=== PATIENT | female | born 1985 | race Caucasian/White ===

== ENCOUNTER 2018-12-12 16:11 | Emergency (ER) | payer MEDICAID ==
[~2018-12-12] VITALS: Ht 152.4 cm; Wt 68.0 kg
[2018-12-12 16:35] VITALS: BP 106/64
[2018-12-12] MEDS ORDERED: NEXPLANON IMPLANT (16:45)
--- NOTE | 2018-12-12 16:46 | NUR ---
leaking clear, watery vaginal fluid started 4 days ago, pain with sex that started 4 days ago also. no significant past medical history.
[2018-12-12 17:46] LABS: CLUE CELLS PRESENT (NONE SEEN); WET PREP WBCS FEW (FEW)
[2018-12-12] MEDS ORDERED: metroNIDAZOLE 500 MG TABLET PO ONE (18:00)
[2018-12-12] MEDS ORDERED: metroNIDAZOLE 500 MG TABLET ONE (18:04)
--- NOTE | 2018-12-12 18:07 | NUR ---
pt medicated per emar. pt ambulatory to bathroom to provide urine sample.
[2018-12-12 18:28] LABS: CULTURE INDICATED? YES; MICROSCOPIC INDICATED
== END 2018-12-12 19:09 | disposition home or self-care (01) ==
LOC: ED 18:45
DX: N89.8 Other specified noninflammatory disorders of vagina (principal); R10.2 Pelvic and perineal pain
CPT/HCPCS: 81001; 87086; 87147; 87210; 87491; 87591; 87808; 99283

== ENCOUNTER 2019-01-17 01:10 | Emergency (ER) | payer MEDICAID ==
[~2019-01-17] VITALS: Ht 157.5 cm; Wt 65.0 kg
[~2019-01-17 01:10] MED LIST: NEXPLANON IMPLANT
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
--- NOTE | 2019-01-17 01:53 | NUR ---
PT TO CT
--- NOTE | 2019-01-17 02:20 | NUR ---
PT BACK FROM CT. PT SLEEPING. CALL LIGHT IN REACH
--- NOTE | 2019-01-17 03:00 | NUR ---
PT GOT OUT OF GURNEY AND URINATED ON FLOOR. PT PLACED BACK IN GURNEY. FLOOR CLEANED.
--- NOTE | 2019-01-17 03:41 | NUR ---
REPORT TO TIA PAYTON
--- NOTE | 2019-01-17 04:52 | NUR ---
PT RESTING IN BED A SLEEP. PT WAS PROVIDED A BLANKET.
[2019-01-17 05:15] VITALS: BP 116/70
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
== END 2019-01-17 05:17 | disposition home or self-care (01) ==
LOC: ED 01:43
DX: S00.511A Abrasion of lip, initial encounter (principal); S09.90XA Unspecified injury of head, initial encounter; F10.121 Alcohol abuse with intoxication delirium; G92 Toxic encephalopathy; R41.0 Disorientation, unspecified; Y04.0XXA Assault by unarmed brawl or fight, initial encounter; Y93.89 Activity, other specified; Y92.89 Other specified places as the place of occurrence of the external cause; Y99.8 Other external cause status
CPT/HCPCS: 70450; 70486; 99284

== ENCOUNTER 2020-01-04 17:02 | Emergency (ER) | payer MEDICAID ==
[~2020-01-04] VITALS: Ht 152.4 cm; Wt 72.9 kg
[2020-01-04 17:11] VITALS: BP 122/85
--- NOTE | 2020-01-04 17:46 | NUR ---
EDITOR: PT TO ROOM FROM [facility]
[2020-01-04 18:11] LABS: HCG UR SG 1.023 (1.003-1.030)
[2020-01-04 18:13] LABS: BASOPHILS # (AUTO) 0.09 x10^3/uL (0-0.1); BASOPHILS % (AUTO) 1 % (0-1); EOSINOPHILS # (AUTO) 0.22 x10^3/uL (0-0.4); EOSINOPHILS % (AUTO) 3 % (1-7); LYMPHOCYTES # (AUTO) 1.98 x10^3/uL (1-3.4); LYMPHOCYTES % (AUTO) 27 % (22-44); MD NO; MEAN CORPUSCULAR HEMOGLOBIN 30.6 pg (27.0-34.8); MEAN CORPUSCULAR HGB CONC 34.2 g/dL (32.4-35.8); MEAN CORPUSCULAR VOLUME 89.5 fL (80-100); MEAN PLATELET VOLUME 7.8 fL (7.4-10.4); MONOCYTES # (AUTO) 0.52 x10^3/uL (0.2-0.8); MONOCYTES % (AUTO) 7 % (2-9); NEUTROPHILS # (AUTO) 4.46 x10^3/uL (1.8-6.8); NEUTROPHILS % (AUTO) 61 % (42-75); PLATELET COUNT 163 x10^3/uL (130-400); RED CELL DISTRIBUTION WIDTH 12.8 % (9.6-15.2)
[2020-01-04 18:22] LABS: ANION GAP 10 mmol/L (5-15); CALCIUM 8.9 mg/dL (8.5-10.1); CHLORIDE 105 mmol/L (98-107); CREATININE 0.89 mg/dL (0.55-1.02)
== END 2020-01-04 19:32 ==
LOC: ED 19:00
DX: N93.8 Other specified abnormal uterine and vaginal bleeding (principal)
CPT/HCPCS: 36415; 76830; 80048; 81025; 85025; 99284

== ENCOUNTER 2020-02-14 23:48 | Emergency (ER) | payer MEDICAID ==
[~2020-02-14] VITALS: Ht 160 cm; Wt 72.3 kg
[2020-02-14 23:53] VITALS: BP 107/82
== END 2020-02-15 00:56 ==
LOC: ED 02-15 00:50
DX: H92.01 Otalgia, right ear (principal); Z53.21 Procedure and treatment not carried out due to patient leaving prior to being seen by health care provider

== ENCOUNTER 2020-02-17 22:55 | Emergency (ER) | payer MEDICAID ==
[~2020-02-17] VITALS: Ht 154.9 cm; Wt 73.5 kg
--- NOTE | 2020-02-17 23:16 | NUR ---
PT REPORTS RIGHT EAR PAIN X3 WEEKS WITH OCCASIONAL LORENZO, TOOK ADVIL TONIGHT WITHOUT PAIN RELIEF. PT DENIES ANY OTHER C/O AT THIS TIME, DENIES DRAINAGE FROM EAR. PT PLACED ON MONITORING, CALL LIGHT WITHIN REACH, ALL SAFETY MEASURES IN PLACE.
[2020-02-17 23:17] VITALS: BP 102/67
[2020-02-17] MEDS ORDERED: CARBAMIDE PEROXIDE EAR DROPS 6.5%, 15ML EACH EAR ONE (23:30)
[2020-02-17] MEDS ORDERED: CARBAMIDE PEROXIDE EAR DROPS 6.5%, 15ML ONE (23:34)
--- NOTE | 2020-02-18 00:36 | NUR ---
PT BILATERAL EARS IRRIGATED. PT TOLERATED WELL, SMALL AMOUNT OF EARWAX OUT FROM EACH YEAR.
== END 2020-02-18 00:55 | disposition home or self-care (01) ==
LOC: ED 02-18 00:34
DX: H61.23 Impacted cerumen, bilateral (principal); H92.03 Otalgia, bilateral
CPT/HCPCS: 69209; 99282

== ENCOUNTER 2020-04-11 17:03 | Emergency (ER) | payer MEDICAID ==
[~2020-04-11] VITALS: Ht 160 cm; Wt 72.5 kg
--- NOTE | 2020-04-11 17:20 | NUR ---
PATIENT WALKED BACK FROM TRIAGE WITH CHIEF C/O LORENZO AND BILATERAL BLURRY VISION SINCE YESTERDAY. PATIENT DENIES N/V, ENDORSES SENSITIVITY TO LIGHT AND SOUND. NO SIGNS OF ACUTE DISTRESS, ATTACHED TO VITALS MACHINE, CALL LIGHT WITHIN REACH. ER PROVIDER AT BEDSIDE FOR EVALUATION.
[2020-04-11] MEDS ORDERED: KETOROLAC 30 MG/1 ML ONE (17:30)
[2020-04-11] MEDS ORDERED: SODIUM CHLORIDE FLUSH 10ML SYR IVF ONE (17:30)
[2020-04-11] MEDS ORDERED: KETOROLAC 30 MG/1 ML IVPush ONE (17:30)
[2020-04-11] MEDS ORDERED: METOCLOPRAMIDE 5 MG/ML, 2ML IVPush ONE (17:30)
[2020-04-11] MEDS ORDERED: DIPHENHYDRAMINE 50 MG/ML, 1ML ONE (17:30)
[2020-04-11] MEDS ORDERED: SODIUM CHLORIDE 0.9% 1,000ML IVBOLUS ONE (17:30)
[2020-04-11] MEDS ORDERED: DIPHENHYDRAMINE 50 MG/ML, 1ML IVPush ONE (17:30)
[2020-04-11] MEDS ORDERED: METOCLOPRAMIDE 5 MG/ML, 2ML ONE (17:30)
--- NOTE | 2020-04-11 18:00 | NUR ---
ENTERTAINMENT & MEDIA CORRESPONDENT DOING EYE EXAM.
--- NOTE | 2020-04-11 18:17 | NUR ---
PATIENT RESTING IN GURNEY WITH EYES CLOSED, RESP EVEN AND UNLABORED, CONNETED TO VITALS MACHINE, CALL LIGHT WITHIN REACH.
[2020-04-11 18:36] VITALS: BP 97/64
--- NOTE | 2020-04-11 19:11 | NUR ---
Patient given discharge instructions and they have confirmed that they understand the instructions, all questions answered. IV removed with tip intact. Patient ambulatory with steady gait to discharge desk.
== END 2020-04-11 19:12 | disposition home or self-care (01) ==
LOC: ED 17:42
DX: G43.C0 Periodic headache syndromes in child or adult, not intractable (principal)
CPT/HCPCS: 96361; 96374; 96375; 99284; J1200; J1885; J2765; J7030

== ENCOUNTER 2020-08-03 12:19 | Emergency (ER) | payer MEDICAID ==
[~2020-08-03] VITALS: Ht 152.4 cm; Wt 71.8 kg
--- NOTE | 2020-08-03 12:39 | NUR ---
PT CAME IN CO LLQ AND RLQ ABD PAIN THAT STARTED LAST NIGHT. PT SAID SHE HAS HAD 1 EPISODE OF VOMITTING AND NUMEROUS EPISODES OF DIARRHEA. PT DENIES RECENT ABX OR URINARY SYMPTOMS. PT RESTING IN [facility]. PROVIDED UA SAMPLE. CONNECTED TO MONITORING EQUIPMENT. BLANKET PROVIDED
--- NOTE | 2020-08-03 12:45 | NUR ---
assumed care of pt. report from Moshe PAYTON. pt here for diarrhea and abd pain. resting in position of comfort. awaiting MD to bedside
--- NOTE | 2020-08-03 12:59 | NUR ---
Sona BOLANOS at bedside for eval
[2020-08-03] MEDS ORDERED: MAALOX/HYOSCYAMINE/LIDOCAINE 45 ML BTL PO ONE (13:30)
[2020-08-03] MEDS ORDERED: ONDANSETRON 2MG/ML, 2ML IVPush ONE (13:30)
[2020-08-03] MEDS ORDERED: FAMOTIDINE 20 MG/2 ML IVPush ONE (13:30)
[2020-08-03 13:33] LABS: BASOPHILS % (AUTO) 1 % (0-1); EOSINOPHILS % (AUTO) 4 % (1-7); LYMPHOCYTES % (AUTO) 14 % (22-44); MD NO; MEAN CORPUSCULAR HGB CONC 33.8 g/dL (32.4-35.8); MONOCYTES % (AUTO) 4 % (2-9); NEUTROPHILS % (AUTO) 77 % (42-75); PLATELET COUNT 226 x10^3/uL (130-400); RED BLOOD COUNT 4.44 x10^6/uL (3.82-5.3)
[2020-08-03 13:39] LABS: ALANINE AMINOTRANSFERASE 105 U/L (12-78); ALBUMIN 3.6 g/dL (3.4-5.0); ANION GAP 10 mmol/L (5-15); CALCIUM 8.8 mg/dL (8.5-10.1); CHLORIDE 106 mmol/L (98-107); CREATININE 0.63 mg/dL (0.55-1.02)
[2020-08-03 13:41] LABS: ALKALINE PHOSPHATASE 62 U/L (45-117); BILIRUBIN,TOTAL 0.5 mg/dL (0.2-1.0); TOTAL PROTEIN 7.4 g/dL (6.4-8.2)
--- NOTE | 2020-08-03 14:00 | NUR ---
late note: this pt was D/C by another RN
[2020-08-03] MEDS ORDERED: FAMOTIDINE 20 MG/2 ML ONE (14:02)
[2020-08-03] MEDS ORDERED: ONDANSETRON 2MG/ML, 2ML ONE (14:02)
[2020-08-03] MEDS ORDERED: MAALOX/HYOSCYAMINE/LIDOCAINE 45 ML BTL ONE (14:02)
[2020-08-03 14:32] VITALS: BP 92/58
== END 2020-08-03 14:53 | disposition home or self-care (01) ==
LOC: ED 13:02
DX: R10.30 Lower abdominal pain, unspecified (principal); R11.2 Nausea with vomiting, unspecified; R19.7 Diarrhea, unspecified
CPT/HCPCS: 36415; 76700; 80053; 83690; 85025; 96374; 96375; 99284; J2405

== ENCOUNTER 2020-08-10 06:10 | Emergency (ER) | payer MEDICAID ==
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
[2020-08-10] MEDS ORDERED: CHLORDIAZEPOXIDE 25 MG CAPSULE ONE (07:30)
[2020-08-10] MEDS ORDERED: CHLORDIAZEPOXIDE 25 MG CAPSULE PO ONE (07:30)
[2020-08-10] MEDS ORDERED: ONDANSETRON 2MG/ML, 2ML ONE (07:30)
[2020-08-10] MEDS ORDERED: ONDANSETRON 2MG/ML, 2ML IVPush ONE (07:30)
[2020-08-10 07:51] LABS: BASOPHILS % (AUTO) 2 % (0-1); EOSINOPHILS % (AUTO) 2 % (1-7); LYMPHOCYTES % (AUTO) 42 % (22-44); MEAN CORPUSCULAR HEMOGLOBIN 30.1 pg (27.0-34.8); MEAN CORPUSCULAR HGB CONC 34.7 g/dL (32.4-35.8); MEAN PLATELET VOLUME 6.7 fL (7.4-10.4); MONOCYTES % (AUTO) 8 % (2-9); NEUTROPHILS % (AUTO) 47 % (42-75); PLATELET COUNT 294 x10^3/uL (130-400); RED BLOOD COUNT 4.26 x10^6/uL (3.82-5.3); RED CELL DISTRIBUTION WIDTH 14.4 % (9.6-15.2)
[2020-08-10 07:53] LABS: MD NO
[2020-08-10 07:58] LABS: ALBUMIN 3.2 g/dL (3.4-5.0); ANION GAP 10 mmol/L (5-15); CALCIUM 7.6 mg/dL (8.5-10.1); CHLORIDE 111 mmol/L (98-107); CREATININE 0.57 mg/dL (0.55-1.02)
[2020-08-10 08:06] LABS: ALANINE AMINOTRANSFERASE 65 U/L (12-78); ALKALINE PHOSPHATASE 58 U/L (45-117); BILIRUBIN,TOTAL 0.3 mg/dL (0.2-1.0); TOTAL PROTEIN 6.8 g/dL (6.4-8.2)
[2020-08-10 09:13] LABS: AMPHETAMINE SCREEN, URINE Negative (Negative); BARBITURATE SCREEN, URINE Negative (Negative); BENZODIAZEPINE SCREEN, URINE Negative (Negative); CANNABINOID SCREEN, URINE Negative (Negative); COCAINE SCREEN, URINE Negative (Negative); METHADONE SCREEN, URINE Negative (Negative); OPIATE SCREEN, URINE Negative (Negative)
[2020-08-10 10:27] VITALS: BP 104/67
--- NOTE | 2020-08-10 10:27 | NUR ---
PT REC'VD DISCHARGE INSTRUCTIONS AND EDUCATION. PT HAD NO QUESTIONS. PT AMBULATED TO DC AREA, STEADY GAIT.
== END 2020-08-10 10:50 ==
LOC: ED 09:09
DX: F10.130 Alcohol abuse with withdrawal, uncomplicated (principal); R45.4 Irritability and anger; Y90.0 Blood alcohol level of less than 20 mg/100 ml; R51.9 Headache, unspecified
CPT/HCPCS: 36415; 80053; 80307; 80320; 85025; 96374; 99285; J2405; G0480